=== PATIENT | female | born 1955 | race Caucasian/White ===

== ENCOUNTER 2019-06-29 09:34 | Inpatient (IN) | payer MEDICAID, OTHER ==
[2019-06-29] MEDS ORDERED: Aspirin Chewable 81 MG TAB ONE (10:01)
[2019-06-29] MEDS ORDERED: Nitroglycerin 2% Ointment 1 INCH/1 GM Packet ONE (10:01)
[2019-06-29 10:25] LABS: Hemoglobin 8.8 g/dL (12.0-16.0); Mean Corpuscular HGB CONC 30.1 g/dL (32.0-36.0); Mean Platelet Volume 6.7 fL (7.4-10.4); Platelet Count 297 thou/uL (130-400); RBC Distribution Width 18.6 % (11.5-14.5); Red Blood Cell (RBC) Count 3.52 mill/uL (4.20-5.40); White Blood Cell (WBC) Count 20.4 thou/uL (4.8-10.8)
[2019-06-29 10:27] LABS: Anisocytosis SLIGHT = 6-15 cells (100X) (0-5/hpf); Band 18 % (5-11); Eosinophils 3 % (0-10); Hypochromia SLIGHT = 6-15 cells (100X) (0-5/hpf); Lymphocytes 4 % (21-51); MDiff Complete? YES; Monocytes 3 % (0-10); Neutrophil 72 % (42-75); Platelet Morphology Comment Appears Adequate
[2019-06-29 10:39] LABS: ALT (SGPT) Less than 6 U/L (8-55); AST (SGOT) 11 U/L (5-34); Albumin 3.4 g/dL (3.4-4.8); Alkaline Phosphatase 61 U/L (40-150); Anion Gap 15 mmol/L (10-20); BUN (Urea Nitrogen) 13 mg/dL (9.8-20.1); Bilirubin, Total 0.2 mg/dL (0.2-1.2); Calc. Creatinine Clearance 0 mL/min (70-130); Calcium 9.4 mg/dL (7.8-10.44); Carbon Dioxide 26 mmol/L (23-31); Chloride 95 mmol/L (98-107); Estimated GFR-MDRD 70; Globulin 3.7 g/dL (2.4-3.5); Glucose 134 mg/dL (80-115); Potassium 3.5 mmol/L (3.5-5.1); Protein, Total 7.1 g/dL (6.0-8.3); Sodium 132 mmol/L (136-145)
[2019-06-29 11:25] LABS: Bilirubin Negative (Negative); Blood, Urine Trace (Negative); Clarity Clear (Clear); Glucose, Urine (Dipstick) Negative (Negative); Leukocyte Negative (Negative); Nitrite Negative (Negative); Protein, Urine (Dipstick) Negative (Neg-Trace); Urobilinogen 0.2 mg/dL (Less than 2)
[2019-06-29 11:30] LABS: Bacteria/HPF None Seen HPF (None Seen); RBC/HPF 0-3 HPF (0-3); Squamous Epithelial 0-3 HPF (0-3); WBC/HPF None Seen HPF (0-3)
[2019-06-29] MEDS ORDERED: Piperacillin/Tazobactam 4.5 GM VIAL ONE (11:59)
--- NOTE | 2019-06-29 12:05 | RAD ---
RADIOGRAPH CHEST 1 VIEW: Date: 06/29/2019 Time: 10:39 a.m. HISTORY: A 64-year-old female with chest pain. COMPARISON: 11/11/2018 FINDINGS: New finding of small, patchy infiltrate at the right medial base. No cardiomegaly or pulmonary edema . No pneumothorax. Non-acute, angulated, right humeral head/neck fracture deformity, stable since s ulder radiograph of 03/12/2019. IMPRESSION: 1. Small apparent new infiltrate at right medial base. Uncertain whether or not this represents acu te pneumonia. Alternatively, this could represent a chronic finding that occurred some time after th e previous chest radiograph of 11/11/2018. There is a possibility that it was present on previous [facility] shoulder radiograph of 03/12/2019. Recommend followup. 2. Nonacute right humeral head fracture. JN [] POS: CET
[2019-06-29] MEDS ORDERED: Pregabalin 50 MG CAP PO SCH (12:30)
[2019-06-29] MEDS ORDERED: Sodium Chloride 0.9% 250 ML 250 ML ONE (12:37)
[2019-06-29 14:12] LABS: Troponin I Less than 0.010 ng/mL (< 0.028)
[2019-06-29] MEDS ORDERED: Gentamicin 80 MG/2 ML VIAL ONE ×2 (14:39→14:42)
[2019-06-29] MEDS: Piperacillin/Tazobactam 3.375 GM in Sodium Chloride 0.9% 100 ML IVPB SCH (18:17)
[2019-06-29] MEDS: Ferrous Sulfate 325 MG TAB PO SCH (18:17)
--- NOTE | 2019-06-29 18:21 | CT ---
CT Abdomen Pelvis WO Con HISTORY: Elevated white blood cell count. Abdominal pain. Allergy to contrast. COMPARISON: 05/18/2018 study. FINDINGS: A right lower lobe infiltrative process is seen. There are atelectatic changes within the l eft base. A large hiatal hernia is present. The liver, spleen, pancreas and gallbladder regions appear unremarkable. The gallbladder is mildly di stended. Right and left adrenal glands and right and left kidneys are normal in size. No significant periaorti c or mesenteric adenopathy. A moderate amount of stool is present. CT of pelvis performed with and without contrast enhancement: Wall thickening in the rectum and recto sigmoid region is noted. This is actually a fairly similar appearance to what was seen on the prior examination. Changes would suggest a focal colitis in this area. No air seen within the bowel wall. N o significant pelvic lymphadenopathy. The bladder is distended. The appendix region appears unremarkable. A left hip prosthesis is present. IMPRESSION: 1. Right lower lobe pneumonia. 2. Wall thickening to the rectosigmoid region suggesting a colitis. This is actually a very similar a ppearance to the previous study. Colonoscopy is suggested.
--- NOTE | 2019-06-29 18:22 | ULT ---
RIGHT UPPER QUADRANT ULTRASOUND: 06/29/2019 PROVIDED CLINICAL HISTORY: Abdominal pain. FINDINGS: The visualized pancreas and IVC appear normal. The liver demonstrates no evidence for mass or intrah epatic biliary ductal dilatation. The common duct is non-dilated. The gallbladder demonstrates no s tones, wall thickening, or pericholecystic fluid. The right kidney demonstrates no evidence for hydr onephrosis or mass. IMPRESSION: No evidence for an acute process. POS: NINFA
[2019-06-29] MEDS ORDERED: Acetaminophen 325 MG TAB PO PRN (20:08)
[2019-06-29] MEDS ORDERED: Guaifenesin DM 100-10/5 ML UDCUP PO PRN (20:10)
[2019-06-29] MEDS ORDERED: Mag-Al Plus 1200 MG/1200 MG/120 MG/30 ML UDCUP PO PRN (20:11)
[2019-06-29] MEDS ORDERED: Ondansetron ODT 4 MG TAB PO PRN (20:12)
[2019-06-29] MEDS ORDERED: Gabapentin 100 MG CAP PO SCH (21:00)
[2019-06-29] MEDS: Pregabalin 50 MG CAP PO SCH (21:13)
[2019-06-29] MEDS: busPIRone HCl 5 MG TAB PO SCH (21:14)
[2019-06-29] MEDS: DULoxetine 30 MG CAP PO SCH (21:15)
[2019-06-29] MEDS: Gabapentin 300 MG CAP PO SCH (21:15)
[2019-06-29] MEDS: Acetaminophen/Codeine 30-300mg Tablet PO PRN (21:16)
[2019-06-29] MEDS: Magnesium Oxide 400 MG TAB PO SCH (21:18)
[2019-06-29] MEDS: Vancomycin HCl 1 GM in Sodium Chloride 0.9% 250 ML 250 ML IVPB SCH (21:18)
--- NOTE | 2019-06-29 22:40 | HP ---
CHIEF COMPLAINT: Right arm pain and chest pain. She has a history of a coronary stent in the past, but has had a recent negative PET scan last year, but does have a history of chronic pain and bipolar disorder. She states, however, the symptoms are much worse. She states she also has had a cough, productive of a small amount of white sputum with no significant increased dyspnea. She has not noticed any palpitations nor shortness of breath. She has a history also of ulcerative colitis and pancreatitis, on mesalamine, but denies any significant abdominal pain. She does state that she has recurrent nausea at times but has not lost any weight and has not had any change in bowel movements or diarrhea, specifically no bloody bowel movements. She does feel that occasionally she has had a urinary tract infection, but she was checked in the emergency room for urinary tract infection and urine was clear. She, however, was found to have a 20,000 white count, etiology uncertain. There were normal lactate and normal vital signs. She has not been on any steroids. MEDICATIONS: Include, 1. Aspirin 81 daily. 2. BuSpar 10 mg once a day. 3. Plavix 75 mg daily. 4. Cymbalta 30 mg daily. 5. Lyrica 50 mg twice daily. 6. Folic acid 1 mg daily. 7. Gabapentin 300 three times daily. 8. Magnesium oxide 400 mg twice daily. 9. Propranolol 10 mg twice daily. 10. Seroquel mg twice daily. 11. Sulfasalazine mg nightly. 12. Naproxen 500 three times daily. 13. Zyrtec 10 mg daily. 14. Protonix 40 daily. 15. Potassium chloride 10 mEq daily. 16. Depakote 500 mg nightly. ALLERGIES: SHE IS ALLERGIC TO HALDOL, IODINE, LORAZEPAM, KETOROLAC, GEODON, IMITREX, SHELLFISH, AND METOPROLOL. PAST SURGICAL HISTORY: Positive for hysterectomy and tonsillectomy. FAMILY MEDICAL HISTORY: Noncontributory. PAST MEDICAL HISTORY: Positive for the above-mentioned chronic pain, bipolar disorder, pancreatitis, ulcerative colitis as well as hypertension. REVIEW OF SYSTEMS: HEENT: She denies headaches, dizziness, change in vision or hearing, hoarseness, or dysphagia. PULMONARY: She denies wheezing, but does state she has a cough, some sputum production recently, and bilateral lower anterior chest pain, increased by breathing. CARDIOVASCULAR: She has above-mentioned history of chest pain, but has a negative stress test last year. She denies any palpitations, orthopnea, paroxysmal nocturnal dyspnea, or edema. GASTROINTESTINAL: She has recurrent nausea, vomiting, abdominal pain, but with no diarrhea or constipation. GENITOURINARY: Denies dysuria, hematuria, or nocturia today, but states she has had some dysuria recently. MUSCULOSKELETAL: She has recurrence of rash with secondary excoriation over her body, unknown etiology. She has chronic diffuse pain over entire body for many years. NEUROLOGIC: She denies localized numbness or weakness in arms or extremities. PSYCHOLOGIC: She does complain of bipolar disorder and anxiety and does have some signs of possible early tardive dyskinesias from medication. PHYSICAL EXAMINATION: GENERAL: The patient is a middle-aged white female, in no acute distress. Oriented x3 and cooperative, but somewhat anxious and nervous. VITAL SIGNS: Show her to have blood pressure of 114/57, temperature is 98, pulse 71, respirations 18, and O2 sats 95% on room air. HEENT: Pupils are equal, round, and reactive to light and accommodation. Sclerae anicteric. Conjunctivae pale. Oral mucous membranes are slightly hydrated. Does appear to have some mild tardive dyskinesias. NECK: Supple. Carotids are 2+ and equal without bruits. JVP is not elevated. LUNGS: Clear. CARDIAC: Showed regular rhythm. ABDOMEN: Soft, nontender with no masses or organomegaly. SKIN AND EXTREMITIES: Display no edema, clubbing, or cyanosis. NEUROLOGIC: Cranial nerves intact. Deep tendon reflex 2+ and equal but absent Babinski. Normal strength and sensation. LABORATORY DATA: Shows sodium 132, potassium 3.5, chloride 95, bicarb 26, BUN 13, creatinine 0.82, glucose is 134, lactic acid 1.5, calcium 9.4, total bilirubin 0.2, AST 11, ALT 6, and alkaline phosphatase 61. Troponin x2 is normal. CRP is elevated at 24.9. BNP is slightly elevated at 142. Albumin is 3.4 and globulin 3.7. White count is 20,400, with 72% segs, 18% bands, hematocrit 29, and hemoglobin 8.8. Urinalysis completely within normal limits. IMAGING DATA: Chest x-ray shows a questionable right lower lobe infiltrate. ASSESSMENT: A 64-year-old white female with chronic pain, hypertension, bipolar disorder, and distant coronary artery disease but with recent negative Cardiolite stress test, who presents with right shoulder pain and chest pain and had an x-ray showing questionable right lower lobe infiltrate, but has been found to have significantly elevated white count of 20,000 with a shift to the left. She has had a history of pancreatitis in the past, does complain of recurrent nausea, but has no significant abdominal tenderness. Amylase however has not been drawn, and CT scan has not been done. She has no evidence of urinary tract infection, but is being treated for sepsis with broad-spectrum antibiotics with vancomycin, gentamicin, and Zosyn. She will continue on these antibiotics until cultures return, and we will also have repeat lactate and follow closely for signs of deterioration in her vital signs. At this time, she appears to be in no acute distress and stable to remain at [facility]. Job ID: [id number]
[2019-06-29] MEDS: Naproxen 500 MG TAB PO SCH (23:29)
[2019-06-29] MEDS: Propranolol HCl 20 MG TAB PO SCH (23:29)
[2019-06-29] MEDS: sulfaSALAzine 500 MG TAB PO SCH (23:30)
[2019-06-30] MEDS: Piperacillin/Tazobactam 3.375 GM in Sodium Chloride 0.9% 100 ML IVPB SCH ×4 (00:44→18:13)
[2019-06-30] MEDS: Acetaminophen/Codeine 30-300mg Tablet PO PRN ×3 (05:47→21:16)
[2019-06-30 06:39] LABS: ALT (SGPT) 6 U/L (8-55); AST (SGOT) 29 U/L (5-34); Albumin 3.3 g/dL (3.4-4.8); Alkaline Phosphatase 64 U/L (40-150); Anion Gap 17 mmol/L (10-20); BUN (Urea Nitrogen) 12 mg/dL (9.8-20.1); Bilirubin, Total 0.2 mg/dL (0.2-1.2); Calc. Creatinine Clearance 64 mL/min (70-130); Calcium 9.5 mg/dL (7.8-10.44); Carbon Dioxide 23 mmol/L (23-31); Chloride 100 mmol/L (98-107); Estimated GFR-MDRD 76; Globulin 4.6 g/dL (2.4-3.5); Glucose 86 mg/dL (80-115); Protein, Total 7.9 g/dL (6.0-8.3); Sodium 135 mmol/L (136-145)
[2019-06-30 06:40] LABS: Hemoglobin 8.3 g/dL (12.0-16.0); Mean Corpuscular HGB CONC 29.8 g/dL (32.0-36.0); Mean Corpuscular Hemoglobin 24.7 pg (27.0-31.0); Mean Corpuscular Volume 83.1 fL (78.0-98.0); Mean Platelet Volume 7.1 fL (7.4-10.4); Platelet Count 285 thou/uL (130-400); RBC Distribution Width 18.6 % (11.5-14.5); Red Blood Cell (RBC) Count 3.35 mill/uL (4.20-5.40); White Blood Cell (WBC) Count 14.9 thou/uL (4.8-10.8)
[2019-06-30 06:41] LABS: Anisocytosis SLIGHT = 6-15 cells (100X) (0-5/hpf); Band 9 % (5-11); Eosinophils 2 % (0-10); Hypochromia MODERATE=16-30 cells (100X) (0-5/hpf); Lymphocytes 7 % (21-51); MDiff Complete? YES; Monocytes 5 % (0-10); Neutrophil 77 % (42-75); Platelet Morphology Comment Appears Adequate
[2019-06-30 07:32] LABS: Potassium 3.5 mmol/L (3.5-5.1)
[2019-06-30] MEDS: busPIRone HCl 5 MG TAB PO SCH ×2 (08:07→21:08)
[2019-06-30] MEDS: Pregabalin 50 MG CAP PO SCH ×2 (08:09→21:07)
[2019-06-30] MEDS: Ferrous Sulfate 325 MG TAB PO SCH ×3 (08:09→16:00)
[2019-06-30] MEDS: Potassium Chloride 10 MEQ TAB PO SCH (08:13)
[2019-06-30] MEDS: Aspirin 81 mg Enteric Coated Tablet PO SCH (08:13)
[2019-06-30] MEDS: Folic Acid 1 MG TAB PO SCH (08:13)
[2019-06-30] MEDS: Naproxen 500 MG TAB PO SCH ×2 (08:14→21:06)
[2019-06-30] MEDS: Clopidogrel Bisulfate 75 MG TAB PO SCH (08:14)
[2019-06-30] MEDS: Loratadine 10 MG TAB PO SCH (08:15)
[2019-06-30] MEDS: Magnesium Oxide 400 MG TAB PO SCH ×2 (08:16→21:06)
[2019-06-30] MEDS: Ascorbic Acid 500 mg Chewable Tablet PO SCH (08:16)
[2019-06-30] MEDS: Gabapentin 300 MG CAP PO SCH ×3 (08:16→21:09)
--- NOTE | 2019-06-30 08:48 | RAD ---
XR Chest 1 View Portable HISTORY: Pulmonary infiltrate COMPARISON: Previous day FINDINGS: The heart size is normal. The lungs are well expanded without pneumothorax or pleural effusions. Mild right infrahilar infiltrate is again seen. Fracture deformity of the right proximal humerus is a gain noted.
[2019-06-30] MEDS ORDERED: DULoxetine 30 MG CAP PO SCH (09:00)
[2019-06-30] MEDS: Enoxaparin Sodium 40 MG/0.4 ML SYRINGE SC SCH (09:15)
[2019-06-30] MEDS: Vancomycin HCl 1 GM in Sodium Chloride 0.9% 250 ML 250 ML IVPB SCH ×2 (09:17→21:24)
[2019-06-30] MEDS: Mesalamine DR 400 mg Capsule PO SCH (10:11)
[2019-06-30] MEDS: Propranolol HCl 20 MG TAB PO SCH ×2 (10:11→21:11)
[2019-06-30] MEDS: sulfaSALAzine 500 MG TAB PO SCH ×3 (10:12→21:24)
[2019-06-30] MEDS: Ondansetron PF 4 MG/2 ML Vial IVP PRN (13:50)
[2019-06-30] MEDS ORDERED: Sodium Chloride 0.9% 10 ML ONE (19:21)
[2019-06-30 20:33] LABS: Vancomycin, Trough 17.7 ug/mL
[2019-06-30] MEDS: DULoxetine 30 MG CAP PO SCH (21:05)
--- NOTE | 2019-06-30 21:55 | PRG ---
DATE OF SERVICE: 06/30/2019 SUBJECTIVE: The patient feels much better with decreased cough. No fever or chills. She has had some wheezing, but her bronchodilators, nebulizers have been discontinued inadvertently. She is having no nausea or vomiting. OBJECTIVE: VITAL SIGNS: Her temperature is 98.2, pulse 81, respirations 20, O2 sats 92% on room air, blood pressure is 121/65. LUNGS: Show diffuse wheezing and rhonchi. CARDIAC: Shows regular rhythm. ABDOMEN: Soft, nontender. LABORATORY DATA: Shows a white count of 14,900, hematocrit 27, hemoglobin 8.3. Sodium is 135, potassium 3.5, chloride 108, bicarb 23, BUN 12, creatinine 0.77, glucose 136, calcium 9.5, ALT 6, alkaline phosphatase 64, AST 29, amylase 155, albumin 3.3. Urinalysis within normal limits. Blood cultures showed no growth at this time. ASSESSMENT: 1. Resolving pancreatitis. 2. Chronic obstructive pulmonary disease with exacerbation, bronchospasm. 3. Pneumonia, resolving. 4. Chronic pain syndrome, stable. 5. Bipolar disorder, stable. PLAN: 1. Continue handheld nebulizers. 2. Continue broad-spectrum antibiotics until blood cultures return negative. 3. Decrease IV fluids to KVO with only antibiotics. 4. Repeat CBC, amylase, comprehensive metabolic profile in the a.m. 5. PICC line as IV cannot be maintained. Job ID: [id number]
[2019-07-01] MEDS: Piperacillin/Tazobactam 3.375 GM in Sodium Chloride 0.9% 100 ML IVPB SCH ×4 (00:54→17:48)
[2019-07-01] MEDS: Acetaminophen/Codeine 30-300mg Tablet PO PRN ×2 (05:39→12:57)
[2019-07-01 06:25] LABS: #Basophils 0.1 thou/uL (0.0-0.2); #Lymphocytes 1.3 thou/uL (1.20-3.40); #Monocytes 0.9 thou/uL (0.11-0.59); #Neutrophils 8.8 thou/uL (1.40-6.50); %Basophils 0.6 % (0.0-1.0); %Eosinophils 0.4 % (0.0-10.0); %Lymphocytes 11.5 % (21.0-51.0); %Monocytes 7.7 % (0.0-10.0); %Neutrophils 79.8 % (42.0-75.0); ALT (SGPT) Less than 6 U/L (8-55); AST (SGOT) 10 U/L (5-34); Albumin 3.2 g/dL (3.4-4.8); Alkaline Phosphatase 61 U/L (40-150); Anion Gap 14 mmol/L (10-20); BUN (Urea Nitrogen) 13 mg/dL (9.8-20.1); Bilirubin, Total 0.2 mg/dL (0.2-1.2); Calc. Creatinine Clearance 61 mL/min (70-130); Calcium 9.7 mg/dL (7.8-10.44); Carbon Dioxide 27 mmol/L (23-31); Chloride 102 mmol/L (98-107); Estimated GFR-MDRD 72; Globulin 3.6 g/dL (2.4-3.5); Glucose 81 mg/dL (80-115); Hemoglobin 7.8 g/dL (12.0-16.0); Mean Corpuscular HGB CONC 28.9 g/dL (32.0-36.0); Mean Corpuscular Hemoglobin 24.2 pg (27.0-31.0); Mean Corpuscular Volume 83.8 fL (78.0-98.0); Platelet Count 272 thou/uL (130-400); Potassium 3.8 mmol/L (3.5-5.1); Protein, Total 6.8 g/dL (6.0-8.3); RBC Distribution Width 18.4 % (11.5-14.5); Red Blood Cell (RBC) Count 3.21 mill/uL (4.20-5.40); Sodium 139 mmol/L (136-145)
[2019-07-01 06:29] LABS: Anisocytosis SLIGHT = 6-15 cells (100X) (0-5/hpf); Hypochromia MODERATE=16-30 cells (100X) (0-5/hpf); Platelet Morphology Comment Appears Adequate
[2019-07-01] MEDS ORDERED: Sodium Chloride 0.9% 10 ML ONE ×4 (07:56→19:03)
[2019-07-01] MEDS: Vancomycin HCl 1 GM in Sodium Chloride 0.9% 250 ML 250 ML IVPB SCH (08:03)
[2019-07-01] MEDS: Ferrous Sulfate 325 MG TAB PO SCH ×3 (08:09→17:47)
[2019-07-01] MEDS: busPIRone HCl 5 MG TAB PO SCH ×2 (08:10→21:09)
[2019-07-01] MEDS: Aspirin 81 mg Enteric Coated Tablet PO SCH (08:10)
[2019-07-01] MEDS: Folic Acid 1 MG TAB PO SCH (08:10)
[2019-07-01] MEDS: Loratadine 10 MG TAB PO SCH (08:10)
[2019-07-01] MEDS: Clopidogrel Bisulfate 75 MG TAB PO SCH (08:11)
[2019-07-01] MEDS: Naproxen 500 MG TAB PO SCH ×2 (08:11→21:09)
[2019-07-01] MEDS: Gabapentin 300 MG CAP PO SCH ×3 (08:11→21:08)
[2019-07-01] MEDS: Potassium Chloride 10 MEQ TAB PO SCH (08:11)
[2019-07-01] MEDS: Magnesium Oxide 400 MG TAB PO SCH ×2 (08:11→21:10)
[2019-07-01] MEDS: Pregabalin 50 MG CAP PO SCH ×2 (08:12→21:08)
[2019-07-01] MEDS: Ascorbic Acid 500 mg Chewable Tablet PO SCH (08:12)
[2019-07-01] MEDS: Mesalamine DR 400 mg Capsule PO SCH (08:13)
[2019-07-01] MEDS: Enoxaparin Sodium 40 MG/0.4 ML SYRINGE SC SCH (08:14)
[2019-07-01] MEDS: Propranolol HCl 20 MG TAB PO SCH (08:16)
[2019-07-01] MEDS: sulfaSALAzine 500 MG TAB PO SCH ×3 (08:17→21:13)
[2019-07-01] MEDS: Ondansetron PF 4 MG/2 ML Vial IVP PRN (19:04)
--- NOTE | 2019-07-01 20:36 | PRG ---
DATE OF SERVICE: 07/01/2019 SUBJECTIVE: The patient feels well. Still having some pain and soreness. She is eating quite as well as she normally eats. No cough, fever, rigors, or chills. OBJECTIVE: VITAL SIGNS: Show temperature 96.9, pulse 102, respirations 18, O2 sats 98% on room air, and blood pressure 123/60. LUNGS: Clear. CARDIAC: Showed regular rhythm. ABDOMEN: Soft and nontender. SKIN/EXTREMITIES: Display no edema, clubbing, or cyanosis, but diffuse tenderness. LABORATORY DATA: Showed white count down to 11,000, hematocrit 26, hemoglobin 7.8, normal differential. Sodium is 139, potassium 3.8, chloride 102, bicarb 27, BUN 13, creatinine 0.8. ALT less than 6, AST 10, and albumin 3.2. Blood cultures x2 are negative at 48 hours. ASSESSMENT: 1. Resolving sepsis of unknown etiology, possibly due to pancreatitis versus right lower lobe infiltrate with negative cultures and normal white count at this time. 2. Severe fibromyalgia with chronic pain, stable. 3. Deconditioning, stable. 4. Bipolar disorder, stable. PLAN: 1. Discontinue IV antibiotics. Start on Levaquin 500 mg p.o. daily. 2. Consult PT and OT. 3. Continue prehospitalization medications, but discontinued mesalamine has not been given. Job ID: [id number]
[2019-07-01] MEDS: DULoxetine 30 MG CAP PO SCH (21:07)
[2019-07-02] MEDS: Acetaminophen/Codeine 30-300mg Tablet PO PRN ×3 (07:39→16:58)
[2019-07-02] MEDS: Aspirin 81 mg Enteric Coated Tablet PO SCH (08:19)
[2019-07-02] MEDS: Naproxen 500 MG TAB PO SCH ×2 (08:19→20:55)
[2019-07-02] MEDS: busPIRone HCl 5 MG TAB PO SCH ×2 (08:20→20:53)
[2019-07-02] MEDS: Ferrous Sulfate 325 MG TAB PO SCH ×3 (08:20→16:59)
[2019-07-02] MEDS: Magnesium Oxide 400 MG TAB PO SCH ×2 (08:21→20:54)
[2019-07-02] MEDS: Loratadine 10 MG TAB PO SCH (08:21)
[2019-07-02] MEDS: Potassium Chloride 10 MEQ TAB PO SCH (08:21)
[2019-07-02] MEDS: Folic Acid 1 MG TAB PO SCH (08:21)
[2019-07-02] MEDS: Clopidogrel Bisulfate 75 MG TAB PO SCH (08:21)
[2019-07-02] MEDS: Ascorbic Acid 500 mg Chewable Tablet PO SCH (08:21)
[2019-07-02] MEDS: Pregabalin 50 MG CAP PO SCH ×2 (08:21→20:54)
[2019-07-02] MEDS: Gabapentin 300 MG CAP PO SCH ×3 (08:21→20:54)
[2019-07-02] MEDS: Enoxaparin Sodium 40 MG/0.4 ML SYRINGE SC SCH (08:22)
[2019-07-02] MEDS: Nystatin 500,000 UNITS/5 ML UDCUP SSW SCH ×4 (08:22→20:52)
[2019-07-02] MEDS: sulfaSALAzine 500 MG TAB PO SCH ×3 (08:31→20:58)
[2019-07-02] MEDS: DULoxetine 30 MG CAP PO SCH (20:52)
[2019-07-03] MEDS: Acetaminophen/Codeine 30-300mg Tablet PO PRN ×2 (03:46→08:04)
[2019-07-03 05:11] VITALS: BMI 19.8
[2019-07-03] MEDS: Ferrous Sulfate 325 MG TAB PO SCH ×3 (08:04→17:16)
[2019-07-03] MEDS: Nystatin 500,000 UNITS/5 ML UDCUP SSW SCH ×3 (09:37→17:16)
[2019-07-03] MEDS: Enoxaparin Sodium 40 MG/0.4 ML SYRINGE SC SCH (09:37)
[2019-07-03] MEDS: Gabapentin 300 MG CAP PO SCH ×2 (09:38→15:40)
[2019-07-03] MEDS: Clopidogrel Bisulfate 75 MG TAB PO SCH (09:39)
[2019-07-03] MEDS: Naproxen 500 MG TAB PO SCH (09:39)
[2019-07-03] MEDS: Magnesium Oxide 400 MG TAB PO SCH (09:41)
[2019-07-03] MEDS: busPIRone HCl 5 MG TAB PO SCH (09:42)
[2019-07-03] MEDS: Aspirin 81 mg Enteric Coated Tablet PO SCH (09:43)
[2019-07-03] MEDS: Potassium Chloride 10 MEQ TAB PO SCH (09:43)
[2019-07-03] MEDS: Loratadine 10 MG TAB PO SCH (09:44)
[2019-07-03] MEDS: Folic Acid 1 MG TAB PO SCH (09:44)
[2019-07-03] MEDS: Pregabalin 50 MG CAP PO SCH (09:44)
[2019-07-03] MEDS: Ascorbic Acid 500 mg Chewable Tablet PO SCH (09:57)
[2019-07-03] MEDS: sulfaSALAzine 500 MG TAB PO SCH ×2 (09:58→15:39)
--- NOTE | 2019-07-03 11:17 | PRG ---
DATE OF SERVICE: 07/02/2019 SUBJECTIVE: The patient is resting, lying in bed, no complaints, but has not been working with therapy and stating she is not eating well, appears to be somewhat nervous and anxious. OBJECTIVE: VITAL SIGNS: Temperature is 98.3, pulse 88, respirations 16, O2 sats 94% on 1-1/2 L, blood pressure is 196/93. LUNGS: Clear. CARDIAC: Regular rhythm. ABDOMEN: Soft and nontender. LABORATORY DATA: Most recent laboratory show white count 11,000 hematocrit 26, hemoglobin 7.8. Sodium 139, potassium 3.8, chloride 102, bicarb 27, BUN 13, creatinine 0.8, amylase 45. Repeat chest x-ray shows small right infrahilar infiltrate. No acute changes. ASSESSMENT: 1. Resolving pneumonia. 2. Resolving pancreatitis. 3. Persistent bipolar disorder, chronic pain. 4. Persistent deconditioning. PLAN: Discuss discharge planning with therapy and nurses. Continue oral antibiotics. Monitor blood pressure. Does appear to be increasing. Job ID: [id number]
--- NOTE | 2019-07-03 11:54 | DIS ---
DATE OF ADMISSION: 06/29/2019 DATE OF DISCHARGE: 07/03/2019 FINAL DIAGNOSES: 1. Acute right lower lobe pneumonia, resolving. 2. Acute pancreatitis, resolved. 3. Chronic bipolar disorder with anxiety and chronic pain. 4. Chronic pain syndrome, on multiple medications. 5. History of ulcerative colitis, on no medications for months, with no recurrence. 6. Severe deconditioning with refusal to cooperate with therapy. HOSPITAL COURSE: The patient is a 64-year-old white female with history of chronic pain, bipolar disorder, and a history of coronary artery disease with a stent in the past with a recent negative PET scan, who was admitted to the hospital with increased pain, cough productive of minimal amount of sputum, and nausea. She was evaluated for urinary tract infection and was normal and was found to have a white count of 20,000, with a normal lactate and normal vital signs. Chest x-ray did show a small right lower lobe infiltrate and therefore she was admitted to the hospital for possible early sepsis secondary to pneumonia and started on IV vancomycin, gentamicin, and Zosyn. Amylase did return elevated to 155, and that she has had a history of pancreatitis in the past and it was felt this might be contributing to her leukocytosis. She steadily improved with no change in her normal vital signs and slowly decreasing leukocytosis on the broad-spectrum antibiotics. Blood culture returned negative x2. She was switched to oral Levaquin and continued to do well on this, but did have some increased anxiety and depression being away [facility] at the [facility], and it was felt that she was stable to be transferred back to [facility] to continue on physical therapy there as she was not cooperating well with therapy. PHYSICAL EXAMINATION: On discharge, VITAL SIGNS: Temperature 98.3, pulse 88, respirations 22, and O2 saturations 94% on room air. Blood pressure was 185/85, but she was upset; previous day had been 123/60. LABORATORY RESULTS: Laboratories showed white count 11,000, hematocrit 26, and hemoglobin 7. Sodium 132, potassium 3.5, chloride 95, BUN 13, and creatinine 0.82. Liver function is normal. Amylase 155 and lipase 4. Urinalysis within normal limits. DISCHARGE MEDICATIONS: She was therefore felt to be stable to be discharged home on her prehospitalization medications of; 1. Ecotrin 81 daily. 2. Buspirone 20 twice daily. 3. Plavix 75 daily. 4. Cymbalta 120 nightly. 5. Depakote 500 mg nightly. 6. Gabapentin 300 three times daily. 7. Magnesium oxide 400 twice daily. 8. Naprosyn 375 daily. 9. Nystatin 500,000 swish and swallow to the mouth four times daily. 10. Pantoprazole 40 daily. 11. Lyrica 50 twice daily. 12. Seroquel 50 nightly. FOLLOWUP: She will be followed by myself at the [facility], and we will attempt to undergo physical therapy there and will finish a full-week course of Levaquin therapy. Job ID: [id number]
[2019-07-03 16:42] VITALS: BP 187/91; TEMP 98.3
== END 2019-07-03 17:20 | DRG 871 ==
LOC: NAV ERS 09:34 → NAV ACUTE 15:20
PROVIDERS: ADMIT Internal Medicine; ATTEND Internal Medicine
DX: A41.9 Sepsis, unspecified organism (principal); J18.1 Lobar pneumonia, unspecified organism; K85.90 Acute pancreatitis without necrosis or infection, unspecified; K86.1 Other chronic pancreatitis; J44.0 Chronic obstructive pulmonary disease with (acute) lower respiratory infection; J44.1 Chronic obstructive pulmonary disease with (acute) exacerbation; R07.89 Other chest pain; E87.6 Hypokalemia; F31.9 Bipolar disorder, unspecified; I10 Essential (primary) hypertension; F41.9 Anxiety disorder, unspecified; G89.4 Chronic pain syndrome; I25.10 Atherosclerotic heart disease of native coronary artery without angina pectoris; D72.829 Elevated white blood cell count, unspecified; M79.7 Fibromyalgia; Z79.82 Long term (current) use of aspirin; Z79.02 Long term (current) use of antithrombotics/antiplatelets; Z91.041 Radiographic dye allergy status; Z79.899 Other long term (current) drug therapy; Z90.89 Acquired absence of other organs; Z90.710 Acquired absence of both cervix and uterus; Z91.013 Allergy to seafood; Z88.8 Allergy status to other drugs, medicaments and biological substances; Z95.5 Presence of coronary angioplasty implant and graft; Z98.890 Other specified postprocedural states
CPT/HCPCS: 36415; 36416; 51701; 71045; 71046; 74176; 76705; 80053; 80202; 81003; 81015; 82150; 83605; 83690; 83880; 84484; 85025; 86140; 87040; 93005; 94640; 96365; 96366; 96367; 96375; A4353; J1580; J1650; J2405; J2543; J3370; J3490; J7050; J7620